=== PATIENT | female | born 1940 | race Caucasian/White ===

== ENCOUNTER 2019-04-21 09:31 | Inpatient (IN) | payer MEDICARE ==
[~2019-04-21] VITALS: Ht 165.1 cm; Wt 60.2 kg
[~2019-04-21 09:31] MED LIST: NOCURR
[2019-04-21] MEDS ORDERED: IOVERSOL 350 MG/ML 100 ML VIAL ONE (09:47)
[2019-04-21] MEDS ORDERED: SODIUM CHLORIDE 0.9% 100 ML ONE (09:47)
[2019-04-21 10:03] LABS: BASOPHILS % (AUTO) 0.9 % (0.0-2.0); EOSINOPHILS % (AUTO) 0.7 % (1.0-6.0); HEMATOCRIT 45.6 % (36-46); HEMOGLOBIN 15.6 g/dL (12.0-16.0); LYMPHOCYTES # (AUTO) 2.3 K/uL (1.0-4.8); LYMPHOCYTES % (AUTO) 31.4 % (22.0-44.0); MEAN CORPUSCULAR HEMOGLOBIN 29.6 pg (26.0-34.0); MEAN CORPUSCULAR HGB CONC 34.3 G/dL (31.0-37.0); MEAN CORPUSCULAR VOLUME 86 fL (80-100); MONOCYTES # (AUTO) 0.6 K/uL (0.1-1.0); MONOCYTES % (AUTO) 8.5 % (2.0-9.0); NEUTROPHILS # (AUTO) 4.3 K/uL (1.8-7.7); NEUTROPHILS % (AUTO) 58.5 % (40.0-70.0); PLATELET COUNT (AUTO) 239 K/uL (150-450); RED BLOOD CELL COUNT(AUTO) 5.28 MIL/uL (4.00-5.20); RED CELL DISTRIBUTION WIDTH 12.8 % (11.5-14.5)
[2019-04-21 10:12] LABS: ANION GAP 7 mmol/L (8-16); CALCIUM, TOTAL 9.7 mg/dL (8.8-10.5); CARBON DIOXIDE 31 mmol/L (22-29); CHLORIDE 102 mmol/L (98-107); CREATININE 0.82 mg/dL (0.60-1.30); GLUCOSE,RANDOM 143 mg/dL (70-110); POTASSIUM 3.8 mmol/L (3.5-5.1); SODIUM SERUM 140 mmol/L (136-145); UREA NITROGEN, BLOOD 14 mg/dL (7-18)
[2019-04-21 10:13] LABS: GLOMERULAR FILTR. RATE CALC > 60 mL/min (>60)
[2019-04-21 10:15] LABS: PROTHROMBIN TIME 9.9 SEC (9.4-11.6)
[2019-04-21] MEDS ORDERED: METF-960 PO (10:15)
[2019-04-21] MEDS ORDERED: HYDR25TA PO (10:15)
[2019-04-21] MEDS ORDERED: RANI150T7 PO (10:15)
[2019-04-21 10:18] LABS: ALANINE AMINOTRANSFERASE 24 U/L (12-78); ALBUMIN 4.1 g/dL (3.4-5.0); ALKALINE PHOSPHATASE 90 U/L (46-116); ASPARTATE AMINOTRANSFERASE 28 U/L (15-37); BILIRUBIN,TOTAL 0.5 mg/dL (0.1-1.0)
[2019-04-21] MEDS ORDERED: ASPIRIN 325 MG TABLET PO ONE (11:00)
[2019-04-21] MEDS ORDERED: ONDANSETRON HCL 4 MG/2 ML VIAL IVP PRN ×2 (11:15→21:45)
[2019-04-21] MEDS ORDERED: ACETAMINOPHEN 325 MG TABLET PO PRN ×2 (11:15→21:45)
[2019-04-21] MEDS ORDERED: 0.9% SODIUM CHLORIDE 10 ML SYRINGE IVP PRN (11:15)
[2019-04-21 15:30] VITALS: BP 133/69
[2019-04-21 20:01] VITALS: BP 123/67
[2019-04-21] MEDS: GABAPENTIN 300 MG CAPSULE PO SCH (20:10)
[2019-04-21] MEDS ORDERED: INFLUENZA VIRUS VACCINE QVS 2019-20 (3YR+)/PF 60 MCG/0.5 ML SYRINGE IM ONE (20:15)
[2019-04-21] MEDS ORDERED: BISACODYL 10 MG RECTAL RECTAL SUPPOSITORY PR PRN (21:45)
[2019-04-21] MEDS ORDERED: ZOLPIDEM TARTRATE 5 MG TABLET PO PRN (21:45)
[2019-04-21] MEDS ORDERED: MAGNESIUM HYDROXIDE SUSPENSION 30 ML UDCUP PO PRN (21:45)
[2019-04-21] MEDS ORDERED: MORPHINE SULFATE 2 MG/ML SYRINGE IVP PRN (21:45)
[2019-04-21] MEDS ORDERED: IPRATROPIUM BROMIDE 0.5 MG/2.5 ML NEB SOLUTION NEB PRN (21:45)
[2019-04-21] MEDS ORDERED: ALBUTEROL SULFATE 2.5 MG/0.5 ML NEB SOLUTION NEB PRN (21:45)
[2019-04-21] MEDS ORDERED: DEXTROSE 50%-WATER 25 GM/50 ML SYRINGE IVP PRN (22:15)
[2019-04-21] MEDS: HYDROCODONE/ACETAMINOPHEN 5-325 MG TABLET PO PRN (22:26)
[2019-04-21] MEDS: INSULIN LISPRO 100 UNITS/ML SQ PRN (22:31)
[2019-04-21 23:58] VITALS: BP 115/64
[2019-04-22 04:33] LABS: GLUCOMETER DEV NAME(LOC) 5N.2; GLUCOSE,POINT OF CARE 191 MG/DL (70-110)
[2019-04-22 04:45] VITALS: BP 111/62
[2019-04-22 06:25] LABS: BASOPHILS % (AUTO) 0.3 % (0.0-2.0); EOSINOPHILS % (AUTO) 0.3 % (1.0-6.0); HEMATOCRIT 42.9 % (36-46); HEMOGLOBIN 14.6 g/dL (12.0-16.0); LYMPHOCYTES # (AUTO) 1.4 K/uL (1.0-4.8); LYMPHOCYTES % (AUTO) 20.9 % (22.0-44.0); MEAN CORPUSCULAR HEMOGLOBIN 29.7 pg (26.0-34.0); MEAN CORPUSCULAR HGB CONC 33.9 G/dL (31.0-37.0); MEAN CORPUSCULAR VOLUME 87 fL (80-100); MONOCYTES # (AUTO) 0.5 K/uL (0.1-1.0); MONOCYTES % (AUTO) 8.1 % (2.0-9.0); NEUTROPHILS # (AUTO) 4.7 K/uL (1.8-7.7); NEUTROPHILS % (AUTO) 70.4 % (40.0-70.0); PLATELET COUNT (AUTO) 247 K/uL (150-450); RED BLOOD CELL COUNT(AUTO) 4.91 MIL/uL (4.00-5.20); RED CELL DISTRIBUTION WIDTH 13.1 % (11.5-14.5)
[2019-04-22 06:30] LABS: HEMOGLOBIN A1C 6.1 % (4.5-6.2)
[2019-04-22 06:53] LABS: ALBUMIN 3.5 g/dL (3.4-5.0); BILIRUBIN,TOTAL 0.7 mg/dL (0.1-1.0); CALCIUM, TOTAL 8.7 mg/dL (8.8-10.5); CHOL/HDL RATIO 4.5 (3.9-5.7); CREATININE 1.28 mg/dL (0.60-1.30); POTASSIUM 3.8 mmol/L (3.5-5.1); THYROID STIMULATING HORMONE 1.47 uIU/mL (0.36-3.74); TOTAL PROTEIN, SERUM 7.1 g/dL (6.4-8.2)
[2019-04-22 06:56] LABS: GLUCOMETER DEV NAME(LOC) 5N.2; GLUCOSE,POINT OF CARE 143 MG/DL (70-110)
[2019-04-22 07:35] VITALS: BP 92/46
[2019-04-22] MEDS: RANITIDINE HCL 150 MG TABLET PO SCH (08:38)
[2019-04-22] MEDS: ASPIRIN 81 MG CHEWABLE TABLET PO SCH (08:39)
[2019-04-22] MEDS: DOCUSATE SODIUM 100 MG CAPSULE PO SCH ×2 (08:41→21:35)
[2019-04-22] MEDS: GABAPENTIN 100 MG CAPSULE PO SCH ×2 (08:41→16:21)
[2019-04-22] MEDS ORDERED: ASPIRIN 81 MG EC TABLET PO SCH (09:00)
[2019-04-22 12:00] VITALS: BP 116/61
[2019-04-22 12:11] LABS: MAGNESIUM 2.1 mg/dL (1.80-2.40); PHOSPHORUS 5.8 mg/dL (2.5-4.9)
[2019-04-22] MEDS: ATORVASTATIN CALCIUM 20 MG TABLET PO SCH (13:56)
[2019-04-22 16:04] VITALS: BP 115/57
[2019-04-22] MEDS: HEPARIN SODIUM,PORCINE 5,000 UNITS/ML VIAL SQ SCH (16:21)
[2019-04-22 17:55] LABS: GLUCOMETER DEV NAME(LOC) 5S.2A; GLUCOSE,POINT OF CARE 162 MG/DL (70-110)
[2019-04-22 17:55] LABS: GLUCOMETER DEV NAME(LOC) 5S.2A; GLUCOSE,POINT OF CARE 169 MG/DL (70-110)
[2019-04-22] MEDS: INSULIN LISPRO 100 UNITS/ML SQ PRN ×2 (18:08→21:38)
[2019-04-22 20:26] VITALS: BP 124/60
[2019-04-22] MEDS: GABAPENTIN 300 MG CAPSULE PO SCH (21:35)
[2019-04-23] VITALS (7 sets, daily range): BP systolic 104–128; BP diastolic 48–71
[2019-04-23] MEDS: HEPARIN SODIUM,PORCINE 5,000 UNITS/ML VIAL SQ SCH ×3 (00:14→16:25)
[2019-04-23 06:37] LABS: GLUCOMETER DEV NAME(LOC) 5S.1; GLUCOSE,POINT OF CARE 136 MG/DL (70-110)
[2019-04-23] MEDS: GABAPENTIN 100 MG CAPSULE PO SCH ×2 (09:18→16:24)
[2019-04-23] MEDS: RANITIDINE HCL 150 MG TABLET PO SCH (09:18)
[2019-04-23] MEDS: ASPIRIN 81 MG CHEWABLE TABLET PO SCH (09:18)
[2019-04-23] MEDS: DOCUSATE SODIUM 100 MG CAPSULE PO SCH ×2 (09:18→21:10)
[2019-04-23] MEDS: ATORVASTATIN CALCIUM 20 MG TABLET PO SCH (09:18)
[2019-04-23] MEDS: HYDROCODONE/ACETAMINOPHEN 5-325 MG TABLET PO PRN (10:43)
[2019-04-23 11:55] LABS: GLUCOMETER DEV NAME(LOC) 5S.2A; GLUCOSE,POINT OF CARE 158 MG/DL (70-110)
[2019-04-23 11:55] LABS: GLUCOMETER DEV NAME(LOC) 5S.2A; GLUCOSE,POINT OF CARE 104 MG/DL (70-110)
[2019-04-23 19:50] LABS: GLUCOMETER DEV NAME(LOC) 5S.1; GLUCOSE,POINT OF CARE 112 MG/DL (70-110)
[2019-04-23] MEDS: GABAPENTIN 300 MG CAPSULE PO SCH (21:10)
[2019-04-24] MEDS: HEPARIN SODIUM,PORCINE 5,000 UNITS/ML VIAL SQ SCH ×2 (00:36→08:28)
[2019-04-24 03:59] VITALS: BP 132/61
[2019-04-24] MEDS: DOCUSATE SODIUM 100 MG CAPSULE PO SCH (08:28)
[2019-04-24] MEDS: GABAPENTIN 100 MG CAPSULE PO SCH (08:28)
[2019-04-24] MEDS: RANITIDINE HCL 150 MG TABLET PO SCH (08:28)
[2019-04-24] MEDS: ASPIRIN 81 MG CHEWABLE TABLET PO SCH (08:28)
[2019-04-24] MEDS: ATORVASTATIN CALCIUM 20 MG TABLET PO SCH (08:28)
[2019-04-24 08:34] VITALS: BP 155/76
[2019-04-24 11:00] LABS: GLUCOMETER DEV NAME(LOC) 5S.1; GLUCOSE,POINT OF CARE 112 MG/DL (70-110)
[2019-04-24 11:00] LABS: GLUCOMETER DEV NAME(LOC) 5S.2A; GLUCOSE,POINT OF CARE 127 MG/DL (70-110)
[2019-04-24] MEDS ORDERED: ASPI81 PO (12:17)
[2019-04-24] MEDS ORDERED: DOCU-275 PO (12:18)
[2019-04-24] MEDS ORDERED: ATOR20TA86 PO (12:18)
[2019-04-24] MEDS ORDERED: GABA-529 PO (12:19)
[2019-04-24] MEDS ORDERED: GABA-531 PO (12:19)
[2019-04-24] MEDS ORDERED: HEPA500018 SQ (12:23)
[2019-04-24] MEDS ORDERED: ACET-2247 PO (12:24)
[2019-04-24 12:25] VITALS: BP 127/71
[2019-04-24] MEDS ORDERED: AUD NEB (12:25)
[2019-04-24] MEDS ORDERED: BISA10SU11 PR (12:26)
[2019-04-24] MEDS ORDERED: D5050I IV (12:28)
[2019-04-24] MEDS ORDERED: HYDR-4061 PO (12:33)
[2019-04-24] MEDS ORDERED: INSU100V SQ (12:35)
[2019-04-24] MEDS ORDERED: IPRNEB IH (12:36)
[2019-04-24] MEDS ORDERED: MOM30 PO (12:37)
[2019-04-24 13:18] LABS: GLUCOMETER DEV NAME(LOC) 5S.1; GLUCOSE,POINT OF CARE 116 MG/DL (70-110)
== END 2019-04-24 13:15 | DRG 65 ==
LOC: EMS 09:32 → 5N 12:16 → 5S 04-22 14:02
PROVIDERS: ADMIT Internal Medicine; ATTEND Internal Medicine
DX: I63.9 Cerebral infarction, unspecified (principal); G81.94 Hemiplegia, unspecified affecting left nondominant side; M19.90 Unspecified osteoarthritis, unspecified site; I65.29 Occlusion and stenosis of unspecified carotid artery; E11.9 Type 2 diabetes mellitus without complications; I10 Essential (primary) hypertension; Z79.82 Long term (current) use of aspirin
CPT/HCPCS: 70496; 70551; 83036; 83735; 84100; 84443; 86850; 86900; 86901; 92507; 92610; 93005; 93306; 93880; 97110; 97112; 97116; 97163; 97166; 97530; 97535; 99291; J1644; J7050

== ENCOUNTER 2019-04-24 15:49 | Inpatient (IN) | payer MEDICARE ==
[~2019-04-24] VITALS: Ht 157.5 cm; Wt 60.8 kg
[~2019-04-24 15:49] MED LIST changes: +ACET-2247 PO; +ASPI81 PO; +ATOR20TA86 PO; +AUD NEB; +BISA10SU11 PR; +D5050I IV; +DOCU-275 PO; +GABA-529 PO; +GABA-531 PO; +HEPA500018 SQ; +HYDR-4061 PO; +HYDR25TA PO; +INSU100V SQ; +IPRNEB IH; +METF-960 PO; +MOM30 PO; -NOCURR; +RANI150T7 PO
[2019-04-24] MEDS ORDERED: ACETAMINOPHEN 325 MG TABLET PO PRN (16:30)
[2019-04-24] MEDS ORDERED: IPRATROPIUM BROMIDE 0.5 MG/2.5 ML NEB SOLUTION NEB PRN (16:45)
[2019-04-24] MEDS ORDERED: ACETAMINOPHEN 650 MG/20.3 ML SOLUTION UDCUP PO PRN (16:45)
[2019-04-24] MEDS ORDERED: ALBUTEROL SULFATE 2.5 MG/0.5 ML NEB SOLUTION NEB PRN (16:45)
[2019-04-24] MEDS ORDERED: HYDROCODONE/ACETAMINOPHEN 5-325 MG TABLET PO PRN (16:45)
[2019-04-24 17:55] VITALS: BP 142/61
[2019-04-24] MEDS ORDERED: INSULIN LISPRO 100 UNITS/ML SQ PRN (19:45)
[2019-04-24] MEDS ORDERED: DEXTROSE 50%-WATER 25 GM/50 ML SYRINGE IVP PRN ×2 (19:45→20:00)
[2019-04-24] MEDS: GABAPENTIN 100 MG CAPSULE PO SCH (20:26)
[2019-04-24] MEDS: HEPARIN SODIUM,PORCINE 5,000 UNITS/ML VIAL SQ SCH (20:26)
[2019-04-24] MEDS: SENNA 187 MG TABLET PO SCH (20:26)
[2019-04-24] MEDS: ATORVASTATIN CALCIUM 20 MG TABLET PO SCH (20:26)
[2019-04-24] MEDS: MELATONIN 5 MG TABLET PO PRN (20:26)
[2019-04-24] MEDS: DOCUSATE SODIUM 100 MG CAPSULE PO SCH (20:26)
[2019-04-24 22:25] LABS: GLUCOMETER DEV NAME(LOC) PVLAB.8; GLUCOSE,POINT OF CARE 155 MG/DL (70-110)
[2019-04-25 01:00] VITALS: BP 163/80
[2019-04-25 05:31] VITALS: BP 141/78
[2019-04-25 06:04] LABS: GLUCOMETER DEV NAME(LOC) 2WR.2; GLUCOSE,POINT OF CARE 109 MG/DL (70-110)
[2019-04-25 07:06] VITALS: BP 140/82
[2019-04-25] MEDS: DOCUSATE SODIUM 100 MG CAPSULE PO SCH ×2 (08:01→21:38)
[2019-04-25] MEDS: ASPIRIN 81 MG EC TABLET PO SCH (08:01)
[2019-04-25] MEDS: HEPARIN SODIUM,PORCINE 5,000 UNITS/ML VIAL SQ SCH ×3 (08:01→21:38)
[2019-04-25] MEDS: FAMOTIDINE 20 MG TABLET PO SCH (08:01)
[2019-04-25] MEDS: GABAPENTIN 100 MG CAPSULE PO SCH ×2 (08:01→21:37)
[2019-04-25 08:03] LABS: BASOPHILS % (AUTO) 0.4 % (0.0-2.0); EOSINOPHILS % (AUTO) 0.6 % (1.0-6.0); HEMATOCRIT 42.2 % (36-46); HEMOGLOBIN 14.2 g/dL (12.0-16.0); LYMPHOCYTES # (AUTO) 1.8 K/uL (1.0-4.8); MEAN CORPUSCULAR HEMOGLOBIN 29.4 pg (26.0-34.0); MEAN CORPUSCULAR HGB CONC 33.7 G/dL (31.0-37.0); MEAN CORPUSCULAR VOLUME 87 fL (80-100); MONOCYTES # (AUTO) 0.8 K/uL (0.1-1.0); MONOCYTES % (AUTO) 12.5 % (2.0-9.0); NEUTROPHILS # (AUTO) 3.9 K/uL (1.8-7.7); NEUTROPHILS % (AUTO) 59.5 % (40.0-70.0); PLATELET COUNT (AUTO) 202 K/uL (150-450); RED BLOOD CELL COUNT(AUTO) 4.85 MIL/uL (4.00-5.20); RED CELL DISTRIBUTION WIDTH 12.7 % (11.5-14.5)
[2019-04-25 08:16] LABS: ALANINE AMINOTRANSFERASE 19 U/L (12-78); ALBUMIN 3.4 g/dL (3.4-5.0); ALKALINE PHOSPHATASE 78 U/L (46-116); ANION GAP 5 mmol/L (8-16); ASPARTATE AMINOTRANSFERASE 23 U/L (15-37); BILIRUBIN,TOTAL 0.6 mg/dL (0.1-1.0); CALCIUM, TOTAL 8.7 mg/dL (8.8-10.5); CARBON DIOXIDE 28 mmol/L (22-29); CHLORIDE 104 mmol/L (98-107); CREATININE 0.81 mg/dL (0.60-1.30); GLUCOSE,RANDOM 109 mg/dL (70-110); SODIUM SERUM 137 mmol/L (136-145); TOTAL PROTEIN, SERUM 7.1 g/dL (6.4-8.2); UREA NITROGEN, BLOOD 20 mg/dL (7-18)
[2019-04-25 08:18] LABS: GLOMERULAR FILTR. RATE CALC > 60 mL/min (>60)
[2019-04-25] MEDS: POLYETHYLENE GLYCOL 3350 17 GM PACKET PO SCH (13:48)
[2019-04-25 15:28] LABS: GLUCOMETER DEV NAME(LOC) PVLAB.8; GLUCOSE,POINT OF CARE 108 MG/DL (70-110)
[2019-04-25 16:16] VITALS: BP 134/62
[2019-04-25] MEDS: MAGNESIUM HYDROXIDE SUSPENSION 30 ML UDCUP PO PRN (17:39)
[2019-04-25] MEDS: INSULIN LISPRO 100 UNITS/ML SQ PRN (17:42)
[2019-04-25 20:31] LABS: GLUCOMETER DEV NAME(LOC) PVLAB.8; GLUCOSE,POINT OF CARE 157 MG/DL (70-110)
[2019-04-25] MEDS ORDERED: MAGNESIUM HYDROXIDE SUSPENSION 30 ML UDCUP PO ONE (21:00)
[2019-04-25 21:27] LABS: GLUCOMETER DEV NAME(LOC) 2WR.2; GLUCOSE,POINT OF CARE 139 MG/DL (70-110)
[2019-04-25] MEDS: SENNA 187 MG TABLET PO SCH (21:37)
[2019-04-25] MEDS: ATORVASTATIN CALCIUM 20 MG TABLET PO SCH (21:38)
[2019-04-25] MEDS: MELATONIN 5 MG TABLET PO PRN (21:38)
[2019-04-26 03:15] VITALS: BP 152/83
[2019-04-26 05:46] LABS: GLUCOMETER DEV NAME(LOC) PVLAB.8; GLUCOSE,POINT OF CARE 127 MG/DL (70-110)
[2019-04-26 07:20] VITALS: BP 148/67
[2019-04-26] MEDS: HEPARIN SODIUM,PORCINE 5,000 UNITS/ML VIAL SQ SCH ×3 (07:58→20:49)
[2019-04-26] MEDS: POLYETHYLENE GLYCOL 3350 17 GM PACKET PO SCH (07:58)
[2019-04-26] MEDS: GABAPENTIN 100 MG CAPSULE PO SCH ×2 (07:59→20:49)
[2019-04-26] MEDS: DOCUSATE SODIUM 100 MG CAPSULE PO SCH ×2 (07:59→20:49)
[2019-04-26] MEDS: ASPIRIN 81 MG EC TABLET PO SCH (07:59)
[2019-04-26] MEDS: FAMOTIDINE 20 MG TABLET PO SCH (08:00)
[2019-04-26 12:55] LABS: GLUCOMETER DEV NAME(LOC) 2WR.2; GLUCOSE,POINT OF CARE 125 MG/DL (70-110)
[2019-04-26 15:02] VITALS: BP 142/76
[2019-04-26] MEDS: PSYLLIUM SEED ORANGE SF 5.8 GM/PACKET PO SCH (15:04)
[2019-04-26 18:15] LABS: GLUCOMETER DEV NAME(LOC) 2WR.2; GLUCOSE,POINT OF CARE 118 MG/DL (70-110)
[2019-04-26] MEDS: SENNA 187 MG TABLET PO SCH (20:49)
[2019-04-26] MEDS: MELATONIN 5 MG TABLET PO PRN (20:49)
[2019-04-26] MEDS: ATORVASTATIN CALCIUM 20 MG TABLET PO SCH (20:49)
[2019-04-26] MEDS: HYDROCORTISONE 25 MG RECTAL SUPPOSITORY PR SCH (20:49)
[2019-04-26 22:26] LABS: GLUCOMETER DEV NAME(LOC) 2WR.2; GLUCOSE,POINT OF CARE 154 MG/DL (70-110)
[2019-04-26 23:15] VITALS: BP 141/70
[2019-04-27] MEDS: MAGNESIUM HYDROXIDE SUSPENSION 30 ML UDCUP PO PRN (06:13)
[2019-04-27 06:39] LABS: GLUCOMETER DEV NAME(LOC) 2WR.2; GLUCOSE,POINT OF CARE 102 MG/DL (70-110)
[2019-04-27 07:30] VITALS: BP 154/79
[2019-04-27] MEDS: HEPARIN SODIUM,PORCINE 5,000 UNITS/ML VIAL SQ SCH ×3 (08:41→21:16)
[2019-04-27] MEDS: FAMOTIDINE 20 MG TABLET PO SCH (08:41)
[2019-04-27] MEDS: GABAPENTIN 100 MG CAPSULE PO SCH ×2 (08:42→21:15)
[2019-04-27] MEDS: DOCUSATE SODIUM 100 MG CAPSULE PO SCH ×2 (08:42→21:15)
[2019-04-27] MEDS: ASPIRIN 81 MG EC TABLET PO SCH (08:42)
[2019-04-27] MEDS: PSYLLIUM SEED ORANGE SF 5.8 GM/PACKET PO SCH (08:44)
[2019-04-27] MEDS: HYDROCORTISONE 25 MG RECTAL SUPPOSITORY PR SCH ×2 (08:45→21:15)
[2019-04-27] MEDS ORDERED: MAGNESIUM CITRATE 300 ML ORAL SOLUTION PO ONE (11:00)
[2019-04-27] MEDS: INSULIN LISPRO 100 UNITS/ML SQ PRN (12:37)
[2019-04-27 16:09] VITALS: BP 151/65
[2019-04-27 18:49] LABS: GLUCOMETER DEV NAME(LOC) 2WR.2; GLUCOSE,POINT OF CARE 106 MG/DL (70-110)
[2019-04-27] MEDS: ATORVASTATIN CALCIUM 20 MG TABLET PO SCH (21:15)
[2019-04-27] MEDS: SENNA 187 MG TABLET PO SCH (21:16)
[2019-04-27] MEDS: MELATONIN 5 MG TABLET PO PRN (21:19)
[2019-04-27 21:53] LABS: GLUCOMETER DEV NAME(LOC) PVLAB.8; GLUCOSE,POINT OF CARE 149 MG/DL (70-110)
[2019-04-27 21:53] LABS: GLUCOMETER DEV NAME(LOC) 2WR.2; GLUCOSE,POINT OF CARE 122 MG/DL (70-110)
[2019-04-28 02:30] VITALS: BP 132/64
[2019-04-28 06:40] LABS: BASOPHILS % (AUTO) 0.7 % (0.0-2.0); HEMATOCRIT 37.9 % (36-46); LYMPHOCYTES # (AUTO) 2.1 K/uL (1.0-4.8); LYMPHOCYTES % (AUTO) 34.2 % (22.0-44.0); MEAN CORPUSCULAR HEMOGLOBIN 29.9 pg (26.0-34.0); MEAN CORPUSCULAR HGB CONC 34.4 G/dL (31.0-37.0); MEAN CORPUSCULAR VOLUME 87 fL (80-100); MONOCYTES # (AUTO) 0.8 K/uL (0.1-1.0); MONOCYTES % (AUTO) 12.2 % (2.0-9.0); NEUTROPHILS # (AUTO) 3.3 K/uL (1.8-7.7); NEUTROPHILS % (AUTO) 51.9 % (40.0-70.0); PLATELET COUNT (AUTO) 196 K/uL (150-450); RED BLOOD CELL COUNT(AUTO) 4.37 MIL/uL (4.00-5.20); RED CELL DISTRIBUTION WIDTH 12.7 % (11.5-14.5)
[2019-04-28 06:41] LABS: GLUCOMETER DEV NAME(LOC) PVLAB.8; GLUCOSE,POINT OF CARE 93 MG/DL (70-110)
[2019-04-28 06:52] LABS: ANION GAP 7 mmol/L (8-16); CALCIUM, TOTAL 8.9 mg/dL (8.8-10.5); CARBON DIOXIDE 29 mmol/L (22-29); CHLORIDE 106 mmol/L (98-107); CREATININE 0.65 mg/dL (0.60-1.30); GLOMERULAR FILTR. RATE CALC > 60 mL/min (>60); GLUCOSE,RANDOM 100 mg/dL (70-110); POTASSIUM 3.9 mmol/L (3.5-5.1); SODIUM SERUM 142 mmol/L (136-145); UREA NITROGEN, BLOOD 21 mg/dL (7-18)
[2019-04-28 07:20] VITALS: BP 145/77
[2019-04-28] MEDS: FAMOTIDINE 20 MG TABLET PO SCH (08:46)
[2019-04-28] MEDS: GABAPENTIN 100 MG CAPSULE PO SCH ×2 (08:46→21:32)
[2019-04-28] MEDS: DOCUSATE SODIUM 100 MG CAPSULE PO SCH (08:46)
[2019-04-28] MEDS: ASPIRIN 81 MG EC TABLET PO SCH (08:47)
[2019-04-28] MEDS: HYDROCORTISONE 25 MG RECTAL SUPPOSITORY PR SCH ×2 (08:47→21:32)
[2019-04-28] MEDS: HEPARIN SODIUM,PORCINE 5,000 UNITS/ML VIAL SQ SCH ×3 (08:47→21:30)
[2019-04-28] MEDS: PSYLLIUM SEED ORANGE SF 5.8 GM/PACKET PO SCH (08:47)
[2019-04-28 14:10] LABS: GLUCOMETER DEV NAME(LOC) 2WR.2; GLUCOSE,POINT OF CARE 123 MG/DL (70-110)
[2019-04-28 16:25] VITALS: BP 139/63
[2019-04-28 17:30] LABS: GLUCOMETER DEV NAME(LOC) 2WR.1C; GLUCOSE,POINT OF CARE 97 MG/DL (70-110)
[2019-04-28] MEDS ORDERED: INFLUENZA VIRUS VACCINE QVS 2019-20 (3YR+)/PF 60 MCG/0.5 ML SYRINGE IM ONE (17:45)
[2019-04-28] MEDS ORDERED: PNEUMOCOCCAL VACCINE POLYVALENT 0.5 ML VIAL [PPSV23] IM ONE (17:45)
[2019-04-28] MEDS: SENNA 187 MG TABLET PO SCH (21:32)
[2019-04-28] MEDS: DOCUSATE SODIUM 250 MG CAPSULE PO SCH (21:33)
[2019-04-28] MEDS: ATORVASTATIN CALCIUM 20 MG TABLET PO SCH (21:33)
[2019-04-28] MEDS: MELATONIN 5 MG TABLET PO PRN (21:44)
[2019-04-28 22:14] LABS: GLUCOMETER DEV NAME(LOC) 2WR.1C; GLUCOSE,POINT OF CARE 93 MG/DL (70-110)
[2019-04-29 04:06] VITALS: BP 135/67
[2019-04-29 06:36] LABS: GLUCOMETER DEV NAME(LOC) 2WR.2; GLUCOSE,POINT OF CARE 99 MG/DL (70-110)
[2019-04-29 07:14] VITALS: BP 130/65
[2019-04-29] MEDS: GABAPENTIN 100 MG CAPSULE PO SCH ×2 (08:03→21:39)
[2019-04-29] MEDS: FAMOTIDINE 20 MG TABLET PO SCH (08:03)
[2019-04-29] MEDS: DOCUSATE SODIUM 250 MG CAPSULE PO SCH ×2 (08:03→21:40)
[2019-04-29] MEDS: PSYLLIUM SEED ORANGE SF 5.8 GM/PACKET PO SCH (08:03)
[2019-04-29] MEDS: LISINOPRIL 20 MG TABLET PO SCH (08:03)
[2019-04-29] MEDS: HEPARIN SODIUM,PORCINE 5,000 UNITS/ML VIAL SQ SCH ×3 (08:04→21:40)
[2019-04-29] MEDS: ASPIRIN 81 MG EC TABLET PO SCH (08:04)
[2019-04-29] MEDS: HYDROCORTISONE 25 MG RECTAL SUPPOSITORY PR SCH ×2 (08:04→21:44)
[2019-04-29 16:00] VITALS: BP 111/56
[2019-04-29 17:38] LABS: GLUCOMETER DEV NAME(LOC) 2WR.2; GLUCOSE,POINT OF CARE 93 MG/DL (70-110)
[2019-04-29 17:39] LABS: GLUCOMETER DEV NAME(LOC) 2WR.1C; GLUCOSE,POINT OF CARE 80 MG/DL (70-110)
[2019-04-29] MEDS: SENNA 187 MG TABLET PO SCH (21:39)
[2019-04-29] MEDS: ATORVASTATIN CALCIUM 20 MG TABLET PO SCH (21:39)
[2019-04-29] MEDS: MELATONIN 5 MG TABLET PO PRN (21:39)
[2019-04-29] MEDS: INSULIN LISPRO 100 UNITS/ML SQ PRN (21:47)
[2019-04-29 22:09] LABS: GLUCOMETER DEV NAME(LOC) 2WR.1C; GLUCOSE,POINT OF CARE 142 MG/DL (70-110)
[2019-04-30] VITALS: BP 116/61
[2019-04-30 06:15] LABS: GLUCOMETER DEV NAME(LOC) 2WR.1C; GLUCOSE,POINT OF CARE 96 MG/DL (70-110)
[2019-04-30 08:00] VITALS: BP 120/64
[2019-04-30] MEDS: HEPARIN SODIUM,PORCINE 5,000 UNITS/ML VIAL SQ SCH ×3 (08:17→21:31)
[2019-04-30] MEDS: PSYLLIUM SEED ORANGE SF 5.8 GM/PACKET PO SCH (08:17)
[2019-04-30] MEDS: ASPIRIN 81 MG EC TABLET PO SCH (08:18)
[2019-04-30] MEDS: GABAPENTIN 100 MG CAPSULE PO SCH ×2 (08:18→21:30)
[2019-04-30] MEDS: DOCUSATE SODIUM 250 MG CAPSULE PO SCH ×2 (08:18→21:31)
[2019-04-30] MEDS: HYDROCORTISONE 25 MG RECTAL SUPPOSITORY PR SCH ×2 (08:18→21:30)
[2019-04-30] MEDS: FAMOTIDINE 20 MG TABLET PO SCH (08:18)
[2019-04-30] MEDS: LISINOPRIL 20 MG TABLET PO SCH (08:19)
[2019-04-30 16:00] VITALS: BP 121/62
[2019-04-30 16:00] LABS: GLUCOMETER DEV NAME(LOC) 2WR.1C; GLUCOSE,POINT OF CARE 101 MG/DL (70-110)
[2019-04-30] MEDS: SENNA 187 MG TABLET PO SCH (21:30)
[2019-04-30] MEDS: ATORVASTATIN CALCIUM 20 MG TABLET PO SCH (21:31)
[2019-04-30] MEDS: MELATONIN 5 MG TABLET PO PRN (21:31)
[2019-04-30] MEDS: MAGNESIUM HYDROXIDE SUSPENSION 30 ML UDCUP PO PRN (21:39)
[2019-04-30 22:25] LABS: GLUCOMETER DEV NAME(LOC) 2WR.1C; GLUCOSE,POINT OF CARE 113 MG/DL (70-110)
[2019-04-30 22:25] LABS: GLUCOMETER DEV NAME(LOC) 2WR.2; GLUCOSE,POINT OF CARE 131 MG/DL (70-110)
[2019-05-01 05:00] VITALS: BP 130/63
[2019-05-01 06:31] LABS: GLUCOMETER DEV NAME(LOC) 2WR.1C; GLUCOSE,POINT OF CARE 94 MG/DL (70-110)
[2019-05-01 07:45] VITALS: BP 101/51
[2019-05-01] MEDS: HYDROCORTISONE 25 MG RECTAL SUPPOSITORY PR SCH ×2 (08:16→17:51)
[2019-05-01] MEDS: ASPIRIN 81 MG EC TABLET PO SCH (08:17)
[2019-05-01] MEDS: HEPARIN SODIUM,PORCINE 5,000 UNITS/ML VIAL SQ SCH ×3 (08:17→21:30)
[2019-05-01] MEDS: FAMOTIDINE 20 MG TABLET PO SCH (08:17)
[2019-05-01] MEDS: DOCUSATE SODIUM 250 MG CAPSULE PO SCH ×2 (08:17→20:25)
[2019-05-01] MEDS: LISINOPRIL 20 MG TABLET PO SCH (08:17)
[2019-05-01] MEDS: MULTIVITAMINS, THERAPEUTIC TABLET PO SCH (08:17)
[2019-05-01] MEDS: PSYLLIUM SEED ORANGE SF 5.8 GM/PACKET PO SCH (08:17)
[2019-05-01] MEDS: GABAPENTIN 100 MG CAPSULE PO SCH ×2 (08:17→20:25)
[2019-05-01 16:15] VITALS: BP 121/62
[2019-05-01] MEDS: MAGNESIUM HYDROXIDE SUSPENSION 30 ML UDCUP PO PRN (17:51)
[2019-05-01] MEDS: ATORVASTATIN CALCIUM 20 MG TABLET PO SCH (20:25)
[2019-05-01] MEDS: SENNA 187 MG TABLET PO SCH (20:25)
[2019-05-01] MEDS: MELATONIN 5 MG TABLET PO PRN (21:31)
[2019-05-01] MEDS: INSULIN LISPRO 100 UNITS/ML SQ PRN (21:34)
[2019-05-01 23:09] LABS: GLUCOMETER DEV NAME(LOC) 2WR.1C; GLUCOSE,POINT OF CARE 97 MG/DL (70-110)
[2019-05-01 23:09] LABS: GLUCOMETER DEV NAME(LOC) 2WR.1C; GLUCOSE,POINT OF CARE 105 MG/DL (70-110)
[2019-05-01 23:09] LABS: GLUCOMETER DEV NAME(LOC) 2WR.1C; GLUCOSE,POINT OF CARE 167 MG/DL (70-110)
[2019-05-01 23:46] VITALS: BP 122/67
[2019-05-02 06:02] LABS: GLUCOMETER DEV NAME(LOC) 2WR.2; GLUCOSE,POINT OF CARE 100 MG/DL (70-110)
[2019-05-02 07:57] VITALS: BP 126/72
[2019-05-02] MEDS: PSYLLIUM SEED ORANGE SF 5.8 GM/PACKET PO SCH (08:30)
[2019-05-02] MEDS: ASPIRIN 81 MG EC TABLET PO SCH (08:30)
[2019-05-02] MEDS: GABAPENTIN 100 MG CAPSULE PO SCH ×2 (08:30→20:23)
[2019-05-02] MEDS: LISINOPRIL 20 MG TABLET PO SCH (08:30)
[2019-05-02] MEDS: DOCUSATE SODIUM 250 MG CAPSULE PO SCH ×2 (08:31→20:23)
[2019-05-02] MEDS: HEPARIN SODIUM,PORCINE 5,000 UNITS/ML VIAL SQ SCH ×3 (08:31→20:23)
[2019-05-02] MEDS: FAMOTIDINE 20 MG TABLET PO SCH (08:31)
[2019-05-02] MEDS: MULTIVITAMINS, THERAPEUTIC TABLET PO SCH (08:31)
[2019-05-02 13:04] LABS: GLUCOMETER DEV NAME(LOC) 2WR.2; GLUCOSE,POINT OF CARE 106 MG/DL (70-110)
[2019-05-02 15:00] VITALS: BP 122/58
[2019-05-02 18:09] LABS: GLUCOMETER DEV NAME(LOC) 2WR.2; GLUCOSE,POINT OF CARE 113 MG/DL (70-110)
[2019-05-02] MEDS: POLYETHYLENE GLYCOL 3350 17 GM PACKET PO SCH (20:24)
[2019-05-02] MEDS: ATORVASTATIN CALCIUM 20 MG TABLET PO SCH (20:24)
[2019-05-02] MEDS: INSULIN LISPRO 100 UNITS/ML SQ PRN (20:28)
[2019-05-02] MEDS: MELATONIN 5 MG TABLET PO PRN (20:29)
[2019-05-02 20:38] LABS: GLUCOMETER DEV NAME(LOC) 2WR.2; GLUCOSE,POINT OF CARE 186 MG/DL (70-110)
[2019-05-02 23:54] VITALS: BP 117/63
[2019-05-03 05:49] LABS: GLUCOMETER DEV NAME(LOC) 2WR.2; GLUCOSE,POINT OF CARE 100 MG/DL (70-110)
[2019-05-03 07:00] VITALS: BP 119/48
[2019-05-03] MEDS: POLYETHYLENE GLYCOL 3350 17 GM PACKET PO SCH ×2 (09:23→20:43)
[2019-05-03] MEDS: FAMOTIDINE 20 MG TABLET PO SCH (09:23)
[2019-05-03] MEDS: GABAPENTIN 100 MG CAPSULE PO SCH ×2 (09:23→20:43)
[2019-05-03] MEDS: HEPARIN SODIUM,PORCINE 5,000 UNITS/ML VIAL SQ SCH ×3 (09:23→20:43)
[2019-05-03] MEDS: DOCUSATE SODIUM 250 MG CAPSULE PO SCH ×2 (09:23→20:43)
[2019-05-03] MEDS: MULTIVITAMINS, THERAPEUTIC TABLET PO SCH (09:24)
[2019-05-03] MEDS: LISINOPRIL 20 MG TABLET PO SCH (09:24)
[2019-05-03] MEDS: ASPIRIN 81 MG EC TABLET PO SCH (09:24)
[2019-05-03 15:50] VITALS: BP 102/56
[2019-05-03] MEDS: ATORVASTATIN CALCIUM 20 MG TABLET PO SCH (20:43)
[2019-05-03] MEDS: MELATONIN 5 MG TABLET PO PRN (20:43)
[2019-05-03 20:47] LABS: GLUCOMETER DEV NAME(LOC) 2WR.1C; GLUCOSE,POINT OF CARE 124 MG/DL (70-110)
[2019-05-03 20:48] LABS: GLUCOMETER DEV NAME(LOC) 2WR.1C; GLUCOSE,POINT OF CARE 106 MG/DL (70-110)
[2019-05-03] MEDS: INSULIN LISPRO 100 UNITS/ML SQ PRN (21:34)
[2019-05-03 21:42] LABS: GLUCOMETER DEV NAME(LOC) 2WR.2; GLUCOSE,POINT OF CARE 149 MG/DL (70-110)
[2019-05-04] MEDS: BENZONATATE 100 MG CAPSULE PO PRN (01:49)
[2019-05-04 01:57] VITALS: BP 137/69
[2019-05-04 06:38] LABS: GLUCOMETER DEV NAME(LOC) 2WR.1C; GLUCOSE,POINT OF CARE 89 MG/DL (70-110)
[2019-05-04 07:45] VITALS: BP 118/67
[2019-05-04] MEDS: POLYETHYLENE GLYCOL 3350 17 GM PACKET PO SCH ×2 (08:13→20:37)
[2019-05-04] MEDS: HEPARIN SODIUM,PORCINE 5,000 UNITS/ML VIAL SQ SCH ×3 (08:14→20:38)
[2019-05-04] MEDS: ASPIRIN 81 MG EC TABLET PO SCH (08:14)
[2019-05-04] MEDS: LISINOPRIL 20 MG TABLET PO SCH (08:14)
[2019-05-04] MEDS: DOCUSATE SODIUM 250 MG CAPSULE PO SCH ×2 (08:14→20:38)
[2019-05-04] MEDS: FAMOTIDINE 20 MG TABLET PO SCH (08:14)
[2019-05-04] MEDS: MULTIVITAMINS, THERAPEUTIC TABLET PO SCH (08:14)
[2019-05-04] MEDS: GABAPENTIN 100 MG CAPSULE PO SCH ×2 (08:14→20:38)
[2019-05-04 15:36] VITALS: BP 137/68
[2019-05-04 18:41] LABS: GLUCOMETER DEV NAME(LOC) 2WR.2; GLUCOSE,POINT OF CARE 94 MG/DL (70-110)
[2019-05-04] MEDS: ATORVASTATIN CALCIUM 20 MG TABLET PO SCH (20:38)
[2019-05-04] MEDS: MELATONIN 5 MG TABLET PO PRN (20:57)
[2019-05-04 22:05] LABS: GLUCOMETER DEV NAME(LOC) 2WR.1C; GLUCOSE,POINT OF CARE 151 MG/DL (70-110)
[2019-05-05] VITALS: BP 142/57
[2019-05-05 06:21] LABS: GLUCOMETER DEV NAME(LOC) 2WR.1C; GLUCOSE,POINT OF CARE 105 MG/DL (70-110)
[2019-05-05 07:23] VITALS: BP 104/57
[2019-05-05] MEDS: MULTIVITAMINS, THERAPEUTIC TABLET PO SCH (07:59)
[2019-05-05] MEDS: HEPARIN SODIUM,PORCINE 5,000 UNITS/ML VIAL SQ SCH ×3 (07:59→21:19)
[2019-05-05] MEDS: LISINOPRIL 20 MG TABLET PO SCH (07:59)
[2019-05-05] MEDS: FAMOTIDINE 20 MG TABLET PO SCH (07:59)
[2019-05-05] MEDS: POLYETHYLENE GLYCOL 3350 17 GM PACKET PO SCH ×2 (08:00→21:17)
[2019-05-05] MEDS: ASPIRIN 81 MG EC TABLET PO SCH (08:00)
[2019-05-05] MEDS: DOCUSATE SODIUM 250 MG CAPSULE PO SCH ×2 (08:00→21:18)
[2019-05-05] MEDS: GABAPENTIN 100 MG CAPSULE PO SCH ×2 (08:00→21:18)
[2019-05-05 08:20] VITALS: BP 143/65
[2019-05-05 15:00] VITALS: BP 106/57
[2019-05-05] MEDS: MELATONIN 5 MG TABLET PO PRN (21:18)
[2019-05-05] MEDS: ATORVASTATIN CALCIUM 20 MG TABLET PO SCH (21:18)
[2019-05-05 23:06] LABS: GLUCOMETER DEV NAME(LOC) 2WR.1C; GLUCOSE,POINT OF CARE 119 MG/DL (70-110)
[2019-05-06 03:00] VITALS: BP 107/57
[2019-05-06 06:19] LABS: GLUCOMETER DEV NAME(LOC) 2WR.2; GLUCOSE,POINT OF CARE 93 MG/DL (70-110)
[2019-05-06 07:28] VITALS: BP 107/61
[2019-05-06] MEDS: DOCUSATE SODIUM 250 MG CAPSULE PO SCH ×2 (07:56→20:39)
[2019-05-06] MEDS: GABAPENTIN 100 MG CAPSULE PO SCH ×2 (07:56→20:39)
[2019-05-06] MEDS: ASPIRIN 81 MG EC TABLET PO SCH (07:56)
[2019-05-06] MEDS: FAMOTIDINE 20 MG TABLET PO SCH (07:56)
[2019-05-06] MEDS: HEPARIN SODIUM,PORCINE 5,000 UNITS/ML VIAL SQ SCH ×3 (07:56→20:40)
[2019-05-06] MEDS: POLYETHYLENE GLYCOL 3350 17 GM PACKET PO SCH ×2 (07:57→20:39)
[2019-05-06] MEDS: LISINOPRIL 20 MG TABLET PO SCH (07:57)
[2019-05-06] MEDS: MULTIVITAMINS, THERAPEUTIC TABLET PO SCH (07:57)
[2019-05-06] MEDS: MAGNESIUM HYDROXIDE SUSPENSION 30 ML UDCUP PO PRN (09:58)
[2019-05-06] MEDS: BENZONATATE 100 MG CAPSULE PO PRN (09:58)
[2019-05-06 15:30] VITALS: BP 119/61
[2019-05-06 17:19] LABS: GLUCOMETER DEV NAME(LOC) 2WR.2; GLUCOSE,POINT OF CARE 117 MG/DL (70-110)
[2019-05-06] MEDS: ATORVASTATIN CALCIUM 20 MG TABLET PO SCH (20:39)
[2019-05-06] MEDS: BACLOFEN 10 MG TABLET PO SCH (20:39)
[2019-05-06] MEDS: MELATONIN 5 MG TABLET PO PRN (20:39)
[2019-05-07 05:30] VITALS: BP 111/55
[2019-05-07 06:16] LABS: GLUCOMETER DEV NAME(LOC) 2WR.2; GLUCOSE,POINT OF CARE 101 MG/DL (70-110)
[2019-05-07 07:15] VITALS: BP 128/67
[2019-05-07] MEDS: ASPIRIN 81 MG EC TABLET PO SCH (08:03)
[2019-05-07] MEDS: DOCUSATE SODIUM 250 MG CAPSULE PO SCH ×2 (08:03→20:33)
[2019-05-07] MEDS: LISINOPRIL 20 MG TABLET PO SCH (08:03)
[2019-05-07] MEDS: GABAPENTIN 100 MG CAPSULE PO SCH ×2 (08:03→20:34)
[2019-05-07] MEDS: MULTIVITAMINS, THERAPEUTIC TABLET PO SCH (08:03)
[2019-05-07] MEDS: HEPARIN SODIUM,PORCINE 5,000 UNITS/ML VIAL SQ SCH ×3 (08:04→20:34)
[2019-05-07] MEDS: FAMOTIDINE 20 MG TABLET PO SCH (08:11)
[2019-05-07] MEDS: POLYETHYLENE GLYCOL 3350 17 GM PACKET PO SCH ×2 (08:11→20:34)
[2019-05-07] MEDS: PHENYLEPHRINE/COCOA BUTTER RECTAL SUPPOSITORY PR PRN (09:20)
[2019-05-07] MEDS: MAGNESIUM HYDROXIDE SUSPENSION 30 ML UDCUP PO PRN (17:00)
[2019-05-07 18:47] VITALS: BP 138/64
[2019-05-07 18:57] LABS: GLUCOMETER DEV NAME(LOC) 2WR.2; GLUCOSE,POINT OF CARE 125 MG/DL (70-110)
[2019-05-07] MEDS: ATORVASTATIN CALCIUM 20 MG TABLET PO SCH (20:33)
[2019-05-07] MEDS: BACLOFEN 10 MG TABLET PO SCH (20:34)
[2019-05-07] MEDS: MELATONIN 5 MG TABLET PO PRN (20:41)
[2019-05-07 23:37] VITALS: BP 112/60
[2019-05-08] MEDS: PHENYLEPHRINE/COCOA BUTTER RECTAL SUPPOSITORY PR PRN (03:55)
[2019-05-08 06:31] LABS: GLUCOMETER DEV NAME(LOC) 2WR.1C; GLUCOSE,POINT OF CARE 96 MG/DL (70-110)
[2019-05-08 07:27] VITALS: BP 104/54
[2019-05-08] MEDS: ASPIRIN 81 MG EC TABLET PO SCH (07:52)
[2019-05-08] MEDS: GABAPENTIN 100 MG CAPSULE PO SCH (07:52)
[2019-05-08] MEDS: DOCUSATE SODIUM 250 MG CAPSULE PO SCH (07:52)
[2019-05-08] MEDS: FAMOTIDINE 20 MG TABLET PO SCH (07:52)
[2019-05-08] MEDS: MULTIVITAMINS, THERAPEUTIC TABLET PO SCH (07:52)
[2019-05-08] MEDS: POLYETHYLENE GLYCOL 3350 17 GM PACKET PO SCH (07:53)
[2019-05-08] MEDS: HEPARIN SODIUM,PORCINE 5,000 UNITS/ML VIAL SQ SCH (07:53)
[2019-05-08] MEDS: LISINOPRIL 20 MG TABLET PO SCH (07:53)
[2019-05-08] MEDS ORDERED: ASPI-1182 PO (09:54)
[2019-05-08] MEDS ORDERED: BACL10TA PO (09:55)
[2019-05-08] MEDS ORDERED: LISI-662 PO (09:58)
[2019-05-08] MEDS ORDERED: FAMO20 PO (09:59)
[2019-05-08] MEDS ORDERED: MULT-1239 PO (09:59)
[2019-05-08] MEDS ORDERED: GABA-529 PO (10:01)
[2019-05-08] MEDS ORDERED: POLY17PO PO (10:04)
[2019-05-08] MEDS ORDERED: POLY238P2 PO (10:04)
== END 2019-05-08 14:00 | disposition home health service (06) | DRG 56 ==
LOC: 2WR 15:55
PROVIDERS: ADMIT Physical Medicine & Rehabilitation; ATTEND Physical Medicine & Rehabilitation
PROC: 3E02340 Introduction of Influenza Vaccine into Muscle, Percutaneous Approach (ICD-10-PCS; principal; 2019-04-28)
PROC: 3E0234Z Introduction of Serum, Toxoid and Vaccine into Muscle, Percutaneous Approach (ICD-10-PCS; 2019-04-28)
DX: I69.351 Hemiplegia and hemiparesis following cerebral infarction affecting right dominant side (principal); I63.9 Cerebral infarction, unspecified; K59.00 Constipation, unspecified; E11.22 Type 2 diabetes mellitus with diabetic chronic kidney disease; E78.5 Hyperlipidemia, unspecified; G47.00 Insomnia, unspecified; I12.9 Hypertensive chronic kidney disease with stage 1 through stage 4 chronic kidney disease, or unspecified chronic kidney disease; K59.09 Other constipation; M19.90 Unspecified osteoarthritis, unspecified site; N18.9 Chronic kidney disease, unspecified; Z79.82 Long term (current) use of aspirin; Z79.899 Other long term (current) drug therapy; Z91.11 Patient's noncompliance with dietary regimen; Z23 Encounter for immunization
CPT/HCPCS: 70450; 74018; 87081; 90686; 90732; 92507; 92508; 92523; 97112; 97116; 97150; 97163; 97166; 97530; 97535; 99366; J1644

== ENCOUNTER 2020-09-27 15:39 | Emergency (ER) | payer MEDICARE ==
[~2020-09-27] VITALS: Ht 157.5 cm; Wt 65.9 kg
[~2020-09-27 15:39] MED LIST changes: -ACET-2247 PO; +ASPI-1444 PO; -ASPI81 PO; -AUD NEB; +BACL10TA PO; -BISA10SU11 PR; -D5050I IV; +FAMO20 PO; +GABA-1216 PO; -GABA-529 PO; -GABA-531 PO; -HEPA500018 SQ; -HYDR-4061 PO; -HYDR25TA PO; -INSU100V SQ; -IPRNEB IH; +LISI-894 PO; -METF-960 PO; -MOM30 PO; +MULT-1239 PO; +POLY17PO PO; -RANI150T7 PO
[2020-09-27 15:47] VITALS: BP 142/71
[2020-09-27] MEDS ORDERED: POVIDONE-IODINE 10% 15 ML SOLUTION UD TP ONE (17:15)
[2020-09-27] MEDS ORDERED: LIDOCAINE 1%/EPI 1:200,000/PF 10 ML VIAL PERC ONE (17:15)
== END 2020-09-27 18:28 | disposition home or self-care (01) ==
LOC: EMS 15:40
DX: L03.312 Cellulitis of back [any part except buttock and flank] (principal); L02.212 Cutaneous abscess of back [any part, except buttock and flank]; E11.9 Type 2 diabetes mellitus without complications; I10 Essential (primary) hypertension; Z79.899 Other long term (current) drug therapy; Z79.82 Long term (current) use of aspirin
CPT/HCPCS: 10061; 99284; J3490; 10060; 99283

== ENCOUNTER 2020-09-30 17:10 | Emergency (ER) | payer MEDICARE ==
[~2020-09-30] VITALS: Ht 157.5 cm; Wt 65.9 kg
[2020-09-30 17:27] VITALS: BP 146/67
== END 2020-09-30 18:22 | disposition home or self-care (01) ==
LOC: EMS 17:12
DX: Z48.00 Encounter for change or removal of nonsurgical wound dressing (principal); E11.9 Type 2 diabetes mellitus without complications; I10 Essential (primary) hypertension; Z79.4 Long term (current) use of insulin; Z79.82 Long term (current) use of aspirin
CPT/HCPCS: 99281; Z7502

== ENCOUNTER 2020-12-05 12:44 | Emergency (ER) | payer MEDICARE ==
[~2020-12-05] VITALS: Ht 157.5 cm; Wt 66.0 kg
[2020-12-05 13:07] LABS: GLUCOMETER DEV NAME(LOC) ERT.5; GLUCOSE,POINT OF CARE 224 MG/DL (70-110)
[2020-12-05] MEDS ORDERED: MORPHINE SULFATE 4 MG/ML SYRINGE IVP ONE (13:30)
[2020-12-05] MEDS ORDERED: SODIUM CHLORIDE 0.9% 1,000 ML IV ONE (13:30)
[2020-12-05] MEDS ORDERED: ONDANSETRON HCL 4 MG/2 ML VIAL IVP ONE (13:30)
[2020-12-05 13:58] LABS: BASOPHILS % (AUTO) 0.3 % (0.0-2.0); EOSINOPHILS % (AUTO) 0 % (1.0-6.0); HEMATOCRIT 39.9 % (36-46); HEMOGLOBIN 13.4 g/dL (12.0-16.0); LYMPHOCYTES # (AUTO) 0.9 K/uL (1.0-4.8); LYMPHOCYTES % (AUTO) 7.7 % (22.0-44.0); MEAN CORPUSCULAR HEMOGLOBIN 28.7 pg (26.0-34.0); MEAN CORPUSCULAR HGB CONC 33.6 G/dL (31.0-37.0); MEAN CORPUSCULAR VOLUME 85 fL (80-100); MONOCYTES # (AUTO) 0.4 K/uL (0.1-1.0); MONOCYTES % (AUTO) 3.5 % (2.0-9.0); NEUTROPHILS # (AUTO) 9.9 K/uL (1.8-7.7); PLATELET COUNT (AUTO) 229 K/uL (150-450); RED BLOOD CELL COUNT(AUTO) 4.68 MIL/uL (4.00-5.20); RED CELL DISTRIBUTION WIDTH 12.4 % (11.5-14.5)
[2020-12-05 14:01] LABS: NEUTROPHILS % (AUTO) 88.5 % (40.0-70.0)
[2020-12-05 14:06] LABS: CALCIUM, TOTAL 9.5 mg/dL (8.8-10.5); CREATININE 1.01 mg/dL (0.60-1.30); POTASSIUM 3.6 mmol/L (3.5-5.1)
[2020-12-05 14:17] LABS: ALBUMIN 4.1 g/dL (3.4-5.0); BILIRUBIN,TOTAL 0.5 mg/dL (0.1-1.0); MAGNESIUM 1.6 mg/dL (1.80-2.40); TOTAL PROTEIN, SERUM 7.9 g/dL (6.4-8.2)
[2020-12-05 14:23] LABS: COVID AG,FIA SOURCE NASOPHARYNGEAL
[2020-12-05] MEDS ORDERED: MAGNESIUM SULFATE 2 GM/WATER 50 ML IV ONE (14:45)
[2020-12-05] MEDS ORDERED: SODIUM CHLORIDE 0.9% 100 ML ONE (15:19)
[2020-12-05] MEDS ORDERED: IOHEXOL 350 MG/ML 100 ML VIAL ONE (15:19)
[2020-12-05 18:49] LABS: APPEARANCE,URINE CLEAR (CLEAR); BILIRUBIN,URINE NEGATIVE (NEGATIVE); GLUCOSE, URINE (UA) NEGATIVE (NEGATIVE); KETONES,URINE NEGATIVE (NEGATIVE); LEUKOCYTE ESTERASE ,URINE NEGATIVE (NEGATIVE); NITRATE,URINE NEGATIVE (NEGATIVE); OCCULT BLOOD,URINE NEGATIVE (NEGATIVE); PROTEIN,URINE NEGATIVE (NEGATIVE)
[2020-12-05 18:59] LABS: BACTERIA,URINE None Seen /HPF (None Seen); RBC,URINE None Seen /HPF (0-2); SQUAMOUS EPITHELIAL CELL,UR Few /LPF (None Seen); WBC,URINE 0-2 /HPF (0-5)
[2020-12-05 21:30] VITALS: BP 134/69
== END 2020-12-05 22:01 | disposition home or self-care (01) ==
LOC: EMS 12:49
DX: K80.20 Calculus of gallbladder without cholecystitis without obstruction (principal); E11.9 Type 2 diabetes mellitus without complications; I10 Essential (primary) hypertension; R11.2 Nausea with vomiting, unspecified; Z20.822 Contact with and (suspected) exposure to COVID-19
CPT/HCPCS: 36415; 71045; 74177; 76705; 80053; 81001; 82550; 82962; 83690; 83735; 83880; 84484; 85025; 87426; 93005; 96361; 96365; 96366; 96375; 99285; A9575; J2270; J2405; J3475; J7030; J7050; U0003; 51701